=== PATIENT | male | born 1980 | race Caucasian/White ===

== ENCOUNTER 2017-02-22 11:45 | Emergency (ER) | payer MEDICAID, OTHER ==
[2017-02-22] MEDS: ONDANSETRON 4 MG INJ IV (19:50)
[2017-02-22] MEDS: LORAZEPAM 2 MG INJ IV (19:50)
[2017-02-22] MEDS: SOD CHLORIDE 0.9% 1,000 ML IV (19:51)
[2017-02-22 19:56] LABS: ADD MAN DIFF? NO
[2017-02-22 19:57] LABS: WHITE BLOOD COUNT 7.9 10^3/ul (4.8-10.8)
[2017-02-22 19:57] LABS: BASOPHIL # 0.1 10^3/ul (0.0-0.1); BASOPHILS % 0.8 % (0.0-2.0); EOSINOPHILS % 0.1 % (0.0-7.0); HEMATOCRIT 44.2 % (42.0-52.0); HEMOGLOBIN 15.3 g/dl (14.0-18.0); LYMPHOCYTES # 1.2 10^3/ul (0.8-2.9); LYMPHOCYTES % 14.6 % (15.0-51.0); MEAN CORPUSCULAR HEMOGLOBIN 33.9 pg (29.0-33.0); MEAN CORPUSCULAR HGB CONC 34.6 g/dl (32.0-37.0); MEAN PLATELET VOLUME 10.3 fl (7.4-10.4); MONOCYTE # 0.9 10^3/ul (0.3-0.9); MONOCYTES % 11.2 % (0.0-11.0); NEUTROPHIL # 5.7 10^3/ul (1.6-7.5); NEUTROPHILS % 72.9 % (39.0-77.0); PLATELET COUNT 121 10^3/UL (140-415); POSITIVE DIFF @See below; RED BLOOD COUNT 4.51 10^6/ul (4.70-6.10); RED CELL DISTRIBUTION WIDTH 13.3 % (11.5-14.5)
[2017-02-22 20:38] LABS: ALANINE AMINOTRANSFERASE 89 IU/L (13-69); ALBUMIN 4.7 g/dl (3.3-4.9); ALBUMIN/GLOBULIN RATIO 1.17; ALKALINE PHOSPHATASE 134 IU/L (42-121); ANION GAP 19 (8-16); ASPARTATE AMINO TRANSFERASE 100 IU/L (15-46); BILIRUBIN,INDIRECT 0.8 mg/dl (0-1.1); BILIRUBIN,TOTAL 0.8 mg/dl (0.2-1.3); BLOOD UREA NITROGEN 12 mg/dl (7-20); CALCIUM 8.5 mg/dl (8.4-10.2); CARBON DIOXIDE 25 mmol/L (21-31); CHLORIDE 104 mmol/L (97-110); GLUCOSE 146 mg/dl (70-220); POTASSIUM 3.5 mmol/L (3.5-5.1); SODIUM 144 mmol/L (135-144); TOTAL PROTEIN 8.7 g/dl (6.1-8.1)
== END 2017-02-22 22:50 | disposition home or self-care (01) ==
LOC: E/R 11:45
DX: F10.230 Alcohol dependence with withdrawal, uncomplicated (principal); R42 Dizziness and giddiness; R40.2252 Coma scale, best verbal response, oriented, at arrival to emergency department; R40.2142 Coma scale, eyes open, spontaneous, at arrival to emergency department; R40.2362 Coma scale, best motor response, obeys commands, at arrival to emergency department; Z87.891 Personal history of nicotine dependence
CPT/HCPCS: 70450; 80053; 85025; 96374; 96375; 99285-25

== ENCOUNTER 2018-10-25 18:46 | Emergency (ER) | payer MEDICAID ==
[2018-10-25] MEDS: ONDANSETRON (ODT) 4 MG TAB ODT (20:30)
[2018-10-25] MEDS: MECLIZINE 12.5 MG TAB PO (20:39)
[2018-10-25] MEDS: IBUPROFEN 600 MG TAB PO (20:39)
== END 2018-10-25 21:19 | disposition home or self-care (01) ==
LOC: FTE 18:46
DX: H92.01 Otalgia, right ear (principal); R42 Dizziness and giddiness
CPT/HCPCS: 70450; 70480; 99284-25